=== PATIENT | male | born 1975 | race Caucasian/White ===

== ENCOUNTER 2016-07-05 09:56 | Emergency (ER) | payer OTHER ==
[~2016-07-05] VITALS: Ht 180.3 cm; Wt 65.0 kg
[~2016-07-05 09:56] MED LIST: AUGM875T PO
[2016-07-05 09:58] VITALS: BP 136/94; PULSE 110; RESP 16; TEMP 98.2; O2SAT 98
[2016-07-05] MEDS ORDERED: LIDOCAINE 1%/EPINEPHrine 1:100,000 SOLN 20 ML VIAL INFIL ONE (10:45)
[2016-07-05] MEDS ORDERED: ULTR50TA5 PO (10:52)
[2016-07-05] MEDS ORDERED: BACT800T5 PO (10:52)
--- NOTE | 2016-07-05 10:52 | PD ---
HPI . Pain and swelling to the plantar aspect of the right foot Chief Complaint: Skin Problem Time Seen by Provider: 10:39 Travel History International Travel<30 days: No Contact w/Intl Traveler<30days: No Traveled to known affect area: No History of Present Illness HPI Patient presents with a 1-1/2 week history of pain and swelling on the plantar aspect of the right foot. He was seen at an urgent care center and given a tetanus shot and placed on Augmentin. He has been taking the Augmentin as directed. However, the area has become more localized, more swollen and more painful. He did maryana it last night himself and has some purulent drainage and decreased size of the lesion. However, it continues to be significantly limited and painful. He has not been running a fever. He denies known injury such as stepping on a nail. PFSH Past Medical History Medical History: Denies Significant Hx Diminished Hearing: No Tetanus Vaccination: < 5 Years Influenza Vaccination: No Past Surgical History Thoracic Surgery: Yes (LUNG SX) Social History Alcohol Use: No Tobacco Use: Yes (/2 PPD) Substance Use: No Allergies-Medications (Allergen,Severity, Reaction): Coded Allergies: No Known Allergies (Unverified , 07/05/16) Reported Meds & Prescriptions Reported Meds & Active Scripts Active Ultram (Tramadol HCl) 50 Mg Tab 50 Mg PO Q4H PRN Bactrim DS (Sulfamethoxazole-Trimethoprim) 800-160 Mg Tab 1 Tab PO BID Augmentin (Amoxicillin-Clavulanate) 875-125 mg Tab 875 Mg PO BID not for use in CrCl <30 ml/min. Review of Systems Except as stated in HPI: all other systems reviewed are Neg General / Constitutional: No: Fever, Chills Musculoskeletal: Positive: Pain (heel of the right foot) Skin: Positive Lesions (on the heel of the right foot) Physical Exam Narrative GENERAL: Awake and alert and in no acute distress. SKIN: Warm and dry. He has an area of fluctuance noticed on the chart aspect of the right heel. It is about the size of a quarter. The overlying skin is not red or hot. CARDIOVASCULAR: Regular rate and rhythm. RESPIRATORY: No accessory muscle use. MUSCULOSKELETAL: No obvious deformities. No edema. NEUROLOGICAL: Awake and alert. No obvious cranial nerve deficits. Motor grossly within normal limits. Normal speech. PSYCHIATRIC: Appropriate mood and affect; insight and judgment normal. Data Data Last Documented VS Vital Signs Date Time Temp Pulse Resp B/P Pulse Ox O2 Delivery O2 Flow Rate FiO2 07/05/16 09:58 98.2 110 16 136/94 98 Orders Wound Culture And Gram Stain (07/05/16 10:44) Lidocai-Epi 1%-1:100,000 Inj (Xylocaine- (07/05/16 10:45) MDM Medical Decision Making Medical Screen Exam Complete: Yes Emergency Medical Condition: Yes Differential Diagnosis My differential diagnosis includes but is not limited to localized wound infection, cellulitis, abscess Narrative Course Patient presents with a swollen, painful lesion on the plantar aspect of the right heel. On examination but he has an abscess. The abscess will be lanced. Procedures Procedure Narrative INCISION AND DRAINAGE OF ABSCESS: The area was prepped and was sterilely draped. A subcutaneous wheal of 1 % Xylocaine with epi with a total number 5 mL was used to anesthetize the area properly. A number 11 scalpel was used to make a 1-cm incision across the area of the abscess. The abscess was drained, complex loculations were broken down, and irrigated with normal saline. Quarter inch iodoform packing was placed in the wound. Sterile dressing applied. Patient advised to follow-up with podiatry to have packing removed in two days. Diagnosis Primary Impression: Abscess of right foot Referrals: Dayan Meier DPM 2 days Patient Instructions: Abscess (ED), General Instructions Med/Other Pt SpecificInfo: Prescription(s) given Scripts Tramadol (Ultram)50 Mg Tab50 Mg PO Q4H PRN (PAIN) #12 TAB Ref 0 Prov:Ekta Dahl MD 07/05/16 Sulfamethoxazole-Trimethoprim (Bactrim DS)800-160 Mg Tab1 Tab PO BID #20 TAB Ref 0 Prov:Ekta Dahl MD 07/05/16 Disposition: 01 DISCHARGE HOME Condition: Stable Ekta Dahl MD Jul 05, 2016 10:52
[2016-07-05] MEDS ORDERED: ACETAMINOPHEN/HYDROcodone 325 MG/5 MG TAB PO ONE (11:45)
[2016-07-16] MEDS ORDERED: BACT800T5 PO (09:40)
[2016-07-28] MEDS ORDERED: CLIN1CAP6 PO (09:55)
[2016-08-18] MEDS ORDERED: DOXY100C PO (09:41)
== END 2016-07-05 12:20 | disposition home or self-care (01) ==
LOC: PHED 09:56
DX: L02.611 Cutaneous abscess of right foot (principal); F17.210 Nicotine dependence, cigarettes, uncomplicated
CPT/HCPCS: 10061; 99283; E0113